=== PATIENT | female | born 2000 | race Caucasian/White ===

== ENCOUNTER 2022-04-04 14:06 | Emergency (ER) | payer BC ==
[2022-04-04] MEDS ORDERED: Meclizine 25 MG Tab PO ONE (15:33)
[2022-04-04] MEDS ORDERED: LORazepam 2 MG/ML SDV IM ONE (16:10)
[2022-04-04 16:56] LABS: CORONAVIRUS COVID-19 NAA NEGATIVE (NEGATIVE)
== END 2022-04-04 18:00 | disposition home or self-care (01) ==
LOC: JP.ED 14:06
DX: F41.9 Anxiety disorder, unspecified (principal); R42 Dizziness and giddiness; Z88.0 Allergy status to penicillin; Z20.822 Contact with and (suspected) exposure to COVID-19
CPT/HCPCS: 0241U; 36415; 70450; 80053; 80305; 81001; 81025; 85025; 96372; 99283; 99285; A9270; J2060